=== PATIENT | male | born 1980 | race Caucasian/White ===

== ENCOUNTER 2016-07-31 22:44 | Emergency (ER) | payer BC ==
[~2016-07-31] VITALS: Ht 180.3 cm; Wt 123.0 kg
[2016-07-31 22:57] VITALS: TEMP 97.7; Ht 180.3 cm; Wt 123.0 kg
[2016-07-31] MEDS ORDERED: OMEP20TA2 PO (23:10)
--- NOTE | 2016-07-31 23:42 | ERPDOC ---
Departure Disposition Decision Date: Jul 31, 2016 Disposition Decision Time: 23:47 Disposition: 01 DISCHARGED HOME, SELF-CARE Impression Impression Impression: Primary Impression: Nasal polyp Additional Impression: Sinusitis Severity: Moderate Condition: Stable Seen By: Physician only Patient Instructions: Sinusitis (ED) Problems/Meds/Labs Reviewed?: Yes Medications reviewed and manag: Yes Additional Instructions: Keflex 500 mg tablet, 2 tablets twice daily for 10 days. Prednisone 10 mg tablet, 3 tablets daily for 3 days, 2 tablets daily for 3 days , 1 tablet daily for 3 days. Flonase, one squirt each nostril twice a day. If pain continues, be sure to follow up with your primary care provider immediately. This may progress into an abscess, and require surgical intervention. Follow up care ordered?: Yes Mental Status: Alert, Oriented HPI - Cough/URI General Chief Complaint: Cough,Fever,Flu,URI Stated Complaint: LEFT SIDE FACIAL PAIN Time Seen by Provider: 23:36 HPI - Cough/URI Initial Comments 36-year-old male presents with left-sided sinus pain and headache. Patient has had a cold for about a week with sinus drainage and sniffles, no fever or chills. Today he developed worsening pain rating up under the left eye and up the side of the face. He had spicy mustard for lunch and felt it on the right side but had no feeling on the left side. He feels like he is having id. breathing out of the left side of his nose, he did try a Bria pot earlier and can get no drainage in the left side with it. No effect to vision, no pain with motion of the eye, light does not cause headache. He does not have a doctor locally, having only moved here a month ago. He does have work tomorrow from 4: 30 until about 1:00 in the afternoon, and feels like he has to get to work. Allergies: Coded Allergies: Penicillins (Verified Allergy, Unknown, 07/31/16) Sulfa (Sulfonamide Antibiotics) (Verified Allergy, Unknown, 07/31/16) Past History Past Medical History Pt denies signifigant H Surgical History Denies Surgeries Social History Smoking Status: Never smoker Substance Use Type: does not use Record Review Pertinent history updated: Yes Physical Exam General General Nourishment: well nourished, well developed, adult Vitals and Pain First Documented Vital Signs Date Time Temp Pulse Resp B/P Pulse Ox O2 Delivery O2 Flow Rate FiO2 07/31/16 22:57 97.7 86 16 179/98 96 Weight: Kilograms: 123.000 Height (feet): Height (inches): 71.00 Triage Pain Scale: Normal Exams: Eyes: Pupils are PERRLA w/ EOMI, No scleral icterus, irritation, or foreign bodies noted Chest/Resp: Clear all lopez, with good airflow, and symmetry bilaterally CV: Regular rate and rhythm, without murmur or gallop, Pulses 2+ all extremities, capillary refill, <2 seconds all ext., no pedal edema noted Neurologic: Patient is alert, and oriented, cranial nerves, motor/sensory/ cerebellar, exams w/o gross deficits, to observation Psychiatric: Patient exhibits, appropriate attention, emotion and affect ENMT (brief) Comments Left Lee is blocked by large polyp anteriorly, right Lee is normal, throat red posterior with postnasal drainage noted. Cheek is tender to palpation on left side. Patient has full range of motion of eyes, with no pain on movement. He pulls are equal and reactive to light. Differential Diagnoses Differential Diagnoses Considering: Sinusitis, Other (nasal polyp, cellulitis) Progress Results/Orders Orders Procedure Category Date Status Time Ceftriaxone (Rocephin) PHA 07/31/16 In Process 23:45 Ketorolac (Toradol) PHA 07/31/16 In Process 23:45 Fluticasone Nasal PHA 08/01/16 In Process [place] (Flonase) 09:00 Medications Current ED Medications Ceftriaxone Sodium (Rocephin) 1 g O ONCE IM ; Start 07/31/16 at 23:45; Stop 07/31 at 23:46 Ketorolac Tromethamine (Toradol) 60 mg O ONCE IM ; Start 07/31/16 at 23:45; Stop 07/31/16 at 23:46 Fluticasone Propionate (Flonase) 1 spray BID EA NOSTRIL ; Start 08/01/16 at 09:00 Progress Progress Patient has large nasal polyp left side. This had difficulty on over some time, even though symptoms are only 36 hours old. He'll be sent home with Flonase nasal spray to be used twice daily for chronic treatment of the polyp. However I 'm concerned about an acute sinusitis with potential for extension of the infection. Patient is given Rocephin 1 g IM, Keflex 500 mg by mouth 2 tabs twice a day, prednisone burst and taper Toradol 60 mg IM follow-up with his physician tomorrow HORTENCIA MURRIETA MD Jul 31, 2016 23:42
[2016-07-31] MEDS ORDERED: KETOROLAC 60mg/2ml INJECTION IM ONE (23:45)
[2016-07-31] MEDS ORDERED: CEFTRIAXONE 1 GRAM INJECTION IM ONE (23:45)
[2016-07-31] MEDS ORDERED: PRED10TA PO (23:51)
[2016-07-31] MEDS ORDERED: CEPH-583 PO (23:51)
[2016-08-01 00:15] VITALS: BP 138/84; PULSE 78; RESP 16; O2SAT 92
[2016-08-01] MEDS ORDERED: FLUTICASONE NASAL SPRAY 50 MCG EA NOSTRIL SCH (09:00)
== END 2016-08-01 00:15 | disposition home or self-care (01) ==
LOC: ED 22:44
DX: J32.9 Chronic sinusitis, unspecified (principal); J33.9 Nasal polyp, unspecified
CPT/HCPCS: 96372; 99283; J0696; J1885